=== PATIENT | female | born 1975 | race Hispanic/Latino ===

== ENCOUNTER 2018-11-06 21:48 | Emergency (ER) | payer OTHER ==
[2018-11-06 22:04] LABS: APPEARANCE,URINE Clear (CLEAR); BILIRUBIN,URINE Negative (NEGATIVE); COLOR,URINE Yellow (YELLOW); GLUCOSE, URINE (UA) Negative (NEGATIVE); KETONES,URINE Negative (NEGATIVE); LEUKOCYTE ESTERASE ,URINE Trace (NEGATIVE); NITRATE,URINE Negative (NEGATIVE); OCCULT BLOOD,URINE Negative (NEGATIVE); PH,URINE 7.5 (5.0-8.0); PROTEIN,URINE Negative (NEGATIVE)
[2018-11-06 22:11] LABS: BACTERIA,URINE Rare /HPF (None Seen); RBC,URINE 0-1 /HPF (0-1); SQUAMOUS EPITHELIAL CELL,UR Rare /HPF (0-2); WBC,URINE 0-1 /HPF (0-1)
[2018-11-06 22:52] LABS: BASOPHILS % (AUTO) 1.4 % (0.0-5.0); EOSINOPHILS % (AUTO) 1.6 % (0.0-8.0); HEMATOCRIT 38.1 % (36-48); LYMPHOCYTES % (AUTO) 17.5 % (21.0-51.0); MEAN CORPUSCULAR HEMOGLOBIN 26.9 pg (27.0-33.0); MEAN CORPUSCULAR HGB CONC 33.4 g/dL (32.0-36.0); MEAN CORPUSCULAR VOLUME 80.7 fL (79-99); MONOCYTES % (AUTO) 7.5 % (3.0-13.0); PLATELET COUNT (AUTO) 319 K/uL (130-400); RED BLOOD CELL COUNT(AUTO) 4.72 MIL/uL (4.00-5.50); RED CELL DISTRIBUTION WIDTH 15.1 % (11.0-15.5); WHITE BLOOD COUNT (AUTO) 12.2 K/uL (4.8-10.8)
[2018-11-06] MEDS ORDERED: KETOROLAC TROMETHAMINE 30MG/ML ONE (22:56)
[2018-11-06 23:10] LABS: CREATININE 0.6 mg/dL (0.5-1.5); POTASSIUM 3.8 mmol/L (3.5-5.1)
[2018-11-06 23:14] LABS: ALBUMIN 3.4 g/dL (3.5-5.0); BILIRUBIN,TOTAL 0.6 mg/dL (0.2-1.0); TOTAL PROTEIN, SERUM 8.3 g/dL (6.0-8.3)
== END 2018-11-07 01:18 | disposition home or self-care (01) ==
LOC: EDH 21:48
DX: R10.31 Right lower quadrant pain (principal); Z90.49 Acquired absence of other specified parts of digestive tract; Z98.51 Tubal ligation status
CPT/HCPCS: 36415; 80053; 81001; 82150; 83690; 85025; 96374; 99283; J1885

== ENCOUNTER 2022-02-20 11:59 | Emergency (ER) | payer OTHER ==
[~2022-02-20] VITALS: Ht 152.4 cm; Wt 96.2 kg
[2022-02-20] MEDS ORDERED: IBUP-2071 PO (12:26)
[2022-02-20] MEDS ORDERED: KETOROLAC 60 MG VIAL (30MG/ML) IVP ONE (12:30)
[2022-02-20 13:11] VITALS: BP 130/75
== END 2022-02-20 13:08 | disposition home or self-care (01) ==
LOC: EDH 11:59
DX: S86.912A Strain of unspecified muscle(s) and tendon(s) at lower leg level, left leg, initial encounter (principal); E66.9 Obesity, unspecified; Z68.41 Body mass index [BMI] 40.0-44.9, adult; Z79.1 Long term (current) use of non-steroidal anti-inflammatories (NSAID); X58.XXXA Exposure to other specified factors, initial encounter; Y93.89 Activity, other specified; Y92.89 Other specified places as the place of occurrence of the external cause; Y99.8 Other external cause status
CPT/HCPCS: 29505; 73562; 96372; 99284; J1885; 96374

== ENCOUNTER 2023-02-03 04:38 | Emergency (ER) | payer OTHER ==
[~2023-02-03] VITALS: Ht 154.9 cm; Wt 97.5 kg
[~2023-02-03 04:38] MED LIST: IBUP-2071 PO
[2023-02-03] MEDS ORDERED: IPRATROPIUM/ALBUTEROL SULFATE 3 ML SOLUTION IH ONE (05:30)
[2023-02-03] MEDS ORDERED: SOLU-MEDROL 125MG VIAL IVP ONE (05:30)
[2023-02-03 05:53] LABS: CREATININE 0.9 mg/dL (0.5-1.5); POTASSIUM 4.1 mmol/L (3.5-5.1)
[2023-02-03 05:54] LABS: BASOPHILS % (AUTO) 1.2 % (0.0-5.0); EOSINOPHILS % (AUTO) 6.4 % (0.0-8.0); HEMATOCRIT 41.5 % (36-48); MEAN CORPUSCULAR HEMOGLOBIN 28.5 pg (27.0-33.0); MEAN CORPUSCULAR VOLUME 86.3 fL (79-99); MONOCYTES % (AUTO) 7.7 % (3.0-13.0); NEUTROPHILS % (AUTO) 59.1 % (40.0-77.0); PLATELET COUNT (AUTO) 295 K/uL (130-400); RED BLOOD CELL COUNT(AUTO) 4.81 MIL/uL (4.00-5.50); RED CELL DISTRIBUTION WIDTH 13.2 % (11.0-15.5); WHITE BLOOD COUNT (AUTO) 9.1 K/uL (4.8-10.8)
[2023-02-03 06:00] LABS: ALBUMIN 3.8 g/dL (3.5-5.0); TOTAL PROTEIN, SERUM 8.4 g/dL (6.0-8.3)
[2023-02-03] MEDS ORDERED: METO10TA41 PO (06:20)
[2023-02-03 06:23] LABS: B-TYPE NATRIURETIC PEPTIDE 12 pg/mL (0-100)
[2023-02-03 06:42] VITALS: BP 117/70
== END 2023-02-03 06:47 | disposition home or self-care (01) ==
LOC: EDH 04:38
DX: K21.00 Gastro-esophageal reflux disease with esophagitis, without bleeding (principal); E66.9 Obesity, unspecified; Z20.822 Contact with and (suspected) exposure to COVID-19; Z90.49 Acquired absence of other specified parts of digestive tract; Z98.890 Other specified postprocedural states
CPT/HCPCS: 99284; 96374; 71045; 87635; 84484; 80053; 83880; 85025; 87804 ×2; 36415; 94640; C9803; J2930

== ENCOUNTER 2025-08-12 23:33 | Emergency (ER) | payer BC ==
[~2025-08-12] VITALS: Ht 152.4 cm; Wt 89.8 kg
[~2025-08-12 23:33] MED LIST changes: +CEPH500B PO; -IBUP-2071 PO; +LEVO-70 PO; +METF-444 PO; +METR-172 PO; +PHEN-846 PO
--- NOTE | 2025-08-12 23:59 | ERN ---
ED Note History of Present Illness Stated Complaint: C/O CHEST PAIN Chief Complaint: Heartburn/GI Distress Time Seen by MD: 23:37 Time Seen by Midlevel: 23:37 Dictation: The patient is a 50-year-old female with a history of diabetes, diverticulitis, , cholecystectomy who presents to the emergency department with complaints of left upper chest pain onset two days ago. Patient reports pain to be constant. Reports nausea but no vomiting. Reports he has been taking Tums today for the discomfort. Allergies: Coded Allergies: No Known Drug Allergies (Verified Allergy, Unknown, 04/07/14) morphine (Unverified Adverse Reaction, Intermediate, HIVES, 10/02/24) ondansetron (Unverified Adverse Reaction, Intermediate, HIVES, 10/02/24) Home Meds Active Scripts Cephalexin Monohydrate (Keflex) 500 Mg Cap, 1 CAP PO BID for 10 Days, #20 CAP 0 Refills Prov:RAF ALEGRE MD 02/14/25 Phenazopyridine HCl (Pyridium) 100 Mg Tab, 1 TAB PO TID for urinary discomfort for 2 Days, #6 TAB 0 Refills Prov:RAF ALEGRE MD 02/14/25 Metronidazole (Metronidazole) 500 Mg Tablet, 1 TAB PO TID for 12 Days, #36 TAB 0 Refills Prov:[facility] 10/04/24 Levofloxacin (Levofloxacin) 500 Mg Tablet, 500 MG PO DAILY, #12 TAB Prov:[facility]JIT [facility] 10/04/24 Reported Medications Metformin HCl (Metformin HCl) 500 Mg Tablet, 500 MG PO BID, TAB 10/02/24 Past Medical History Past Medical History: Diabetes-Type II, Diverticulosis Additional Past Medical Hx: Obesity Surgical History: Cholecystectomy, Surgical History Other: D & C Family History: Negative Social History: Negative RN Note Reviewed/Agreed w/PFSH: Yes Review of System Dictation Constitutional: Negative for fever,chills, and weight loss Eyes: Negative for injury, pain,redness, and discharge ENT: Negative for injury,pain or swelling Cardiovascular: Negative for palpitations, and edema positive for chest pain Respiratory: Negative for shortness of breath, cough, and wheezing, Abdomen/GI: Negative for abdominal pain, nausea, vomiting, diarrhea, and constipation Back: Negative for injury and pain : Negative for injury, bleeding and discharge MS/Extremity: Negative for injury and deformity Skin: Negative for rash, and discoloration Neuro: Negative for headache, weakness, numbness, tingling, and seizure Psych: Negative for suicide ideation, homicidal ideation, and hallucinations Initial Vital Sign VS Vital Signs Date Time Temp Pulse Resp B/P (MAP) Pulse Ox O2 Delivery O2 Flow Rate FiO2 08/12/25 23:35 98.6 67 20 97 Room Air 08/13/25 00:14 104/64 0 21 Physical Exam Dictation Vital Signs reviewed General Appearance: Alert, oriented x 3, no acute distress, well developed, nourished. Head and Face: non-traumatic. Eyes: PERRL, pink conjunctivas, eyelid no trauma, anterior chamber with arcus senilis. Ears: Pinnas intact and no signs of trauma or erythema ear canals clear and no discharge TM no erythema Nose: No discharge, no bleeding. Oropharynx: Mouth normal, tongue pink. pharynx clear,no erythema, tonsils no exudates, no abscesses noted, mucous membrane moist Neck: Supple, non-tender, no thyromegaly, no masses, no JVD, no bruits Breast:Deferred Chest:+ tenderness, no crepitus, no paradoxical movement, no retractions Lungs:Clear, well-ventilated, symmetric, no rales, no wheezing, no rhonchi, no stridor, good breath sounds bilaterally Heart: Regular rate, regular rhythm, no murmur, no gallops Vascular: no peripheral edema, Abdomen: Soft, positive bowel sounds, nondistended, no guarding, nontender, no rebound, no masses no hepatomegaly, no splenomegaly, no Dobbins's sign, no hernias. Rectal: Deferred Genital: Deferred Neurological: Normal speech, motor function intact, sensory function intact Musculoskeletal: Neck nontender, full range of motion, back nontender, full range of motion, Extremities: nontender, full range of motion Skin: Color pink, dry, no turgor, no rash, no lacerations, no abrasions, no contusions. Lymphatic: Deferred Results (Laboratory/Radiology) Laboratory/Radiology Laboratory Tests Test 08/12/25 23:53 08/12/25 23:55 08/13/25 01:06 White Blood Count 9.7 K/uL (4.8-10.8) Red Blood Count 4.95 MIL/uL (4.00-5.50) Hemoglobin 14.1 g/dL (12.0-16.0) Hematocrit 41.5 % (36-48) Mean Corpuscular Volume 83.8 fL (79-99) Mean Corpuscular Hemoglobin 28.5 pg (27.0-33.0) Mean Corpuscular Hemoglobin Concent 34.0 g/dL (32.0-36.0) Red Cell Distribution Width 12.8 % (11.0-15.5) Platelet Count 319 K/uL (130-400) Mean Platelet Volume 9.8 fL (7.5-10.5) Immature Granulocyte % (Auto) 0.5 % (0-1) Neutrophils (%) (Auto) 48.2 % (40.0-77.0) Lymphocytes (%) (Auto) 40.6 % (21.0-51.0) Monocytes (%) (Auto) 8.2 % (3.0-13.0) Eosinophils (%) (Auto) 1.7 % (0.0-8.0) Basophils (%) (Auto) 0.8 % (0.0-5.0) Neutrophils # (Auto) 4.7 K/uL (1.8-7.7) Lymphocytes # (Auto) 4.0 K/uL (1.0-4.8) Monocytes # (Auto) 0.8 K/uL (0.1-1.0) Eosinophils # (Auto) 0.17 K/uL (0.00-0.70) Basophils # (Auto) 0.08 K/uL (0.00-0.20) Absolute Immature Granulocyte (auto 0.05 K/uL (0-1) Nucleated Red Blood Cells 0.0 % (0.0-0.19) Sodium Level 139 mmol/L (136-145) Potassium Level 3.4 mmol/L (3.5-5.1) L Chloride Level 102 mmol/L (101-111) Carbon Dioxide Level 25 mmol/L (21-32) Blood Urea Nitrogen 13 mg/dL (7-18) Creatinine 0.7 mg/dL (0.5-1.0) Glomerular Filtration Rate Calc 105 mL/min (>90) Random Glucose 93 mg/dL (70-105) Total Calcium 9.1 mg/dL (8.5-10.1) Magnesium Level 2.20 mg/dL (1.80-2.40) Total Creatine Kinase 90 U/L (21-232) Troponin I High Sensitivity < 4 ng/L (4-50) L < 4 ng/L (4-50) L Lipase 36 U/L (16-77) Urine Color LIGHT-YELLOW (YELLOW) Urine Appearance CLEAR (CLEAR) Urine pH 8.0 (5.0-8.0) Urine Specific [place] 1.020 (1.001-1.031) Urine Protein NEGATIVE mg/dL (NEGATIVE) Urine Glucose (UA) NEGATIVE mg/dL (NEGATIVE) Urine Ketones NEGATIVE mg/dL (NEGATIVE) Urine Occult Blood NEGATIVE (NEGATIVE) Urine Nitrate NEGATIVE (NEGATIVE) Urine Bilirubin NEGATIVE mg/dL (NEGATIVE) Urine Urobilinogen 3 mg/dL (0.2-1.0) H Urine Leukocyte Esterase NEGATIVE [place]/uL Urine RBC 2-5 /HPF (0-1) H Urine WBC 2-5 /HPF (0-1) H Urine Squamous Epithelial Cells RARE /HPF (0-2) Urine Bacteria None /HPF (None Seen) REASON: cp ORDERING PHYSICIAN: RAKEL DUBON PROCEDURE: CXR1VW - CHEST 1VW EXAM: CR Chest, 1 view CLINICAL HISTORY: Chest pain. COMPARISON: Chest radiograph dated 07/31/2023. FINDINGS: The lungs show no infiltrates or other acute findings. No pleural effusion or pneumothorax. The cardiomediastinal silhouette is within normal limits. No acute osseous abnormality. IMPRESSION: No acute cardiopulmonary process is evident. Compared to the prior study, there is no significant interval change. /[place] Labs Reviewed?: Yes EKG: (+) rhythm (Sinus rhythm) EKG Comment: Date:08/12/2025 Time:234 Ventricular rate:65 TN interval:158 QRS duration:106 QT/QTc:429/446 EKG interpretation: Sinus rhythm Reviewed by ED Attending no STEMI ED Course ED Course Orders Procedure Category Date Status Time Cbc With Differential LAB 08/12/25 Complete 23:39 Chest 1vw RAD 08/12/25 Resulted 23:39 12 Lead Ekg Tracing- EKG 08/12/25 Logged Technical 23:39 Magnesium LAB 08/12/25 Complete 23:39 Creatine Kinase, Total LAB 08/12/25 Complete 23:39 Troponin I High LAB 08/12/25 Complete Sensitivity 23:39 Aspirin 325mg Tab PHA 08/13/25 Complete (Aspirin 325mg Tab) 00:00 Urinalysis Profile LAB 08/12/25 Complete 23:39 Basic Metabolic Panel LAB 08/12/25 Complete 23:39 Lipase LAB 08/12/25 Complete 23:39 Pantoprazole 40mg Inj PHA 08/13/25 Complete (Protonix 40mg Inj 00:00 Troponin I High LAB 08/13/25 Complete Sensitivity 00:51 Potassium Bicarb/Cit PHA 08/13/25 Complete Ac 25meq (K-Lyte Ta 01:00 Current Medications Medications (Trade) Dose Ordered Sig/Ronit Route PRN Reason Start Time Stop Time Status Last Admin Dose Admin Aspirin (Aspirin 325mg Tab) 325 mg ONCE ONCE PO 08/13/25 00:00 08/13/25 00:01 DC 08/13/25 00:21 Pantoprazole Sodium (PROTonix 40MG INJ) 40 mg ONCE ONCE IVP 08/13/25 00:00 08/13/25 00:01 DC 08/13/25 00:21 Potassium Bicarbonate (K-Lyte Tablet Eff 25 Meq Tablet.eff) 25 meq ONCE ONCE PO 08/13/25 01:00 08/13/25 01:01 DC 08/13/25 01:03 Vital Signs Date Time Temp Pulse Resp B/P (MAP) Pulse Ox O2 Delivery O2 Flow Rate FiO2 08/13/25 01:14 98.2 68 19 112/72 97 Room Air* 0 21 08/13/25 00:14 98.2 61 18 104/64 97 Room Air* 0 21 08/12/25 23:35 98.6 67 20 97 Room Air HEART Score Response (Comments) Value History: Low suspicion (0) 0 EKG: Normal 0 Age: 45-65yrs (+1) 1 Risk Factors: 1-2 risk factors (+1) 1 Initial Troponin: Normal limit (0) 0 Total 2 Medical Decision Making MDM The patient is a 50-year-old female with a history of diabetes, diverticulitis, , cholecystectomy who presents to the emergency department with compl aints of left upper chest pain onset two days ago. Patient reports pain to be constant. Reports nausea but no vomiting. Reports he has been taking Tums today for the discomfort. CBC showed no leukocytosis, no anemia, chemistry showed mild hypokalemia, n egative troponin x2. chest x-ray showed no acute pathology. Patient with tenderness to palpation. Low cardiac score. On physical exam patient is in no acute distress, nontoxic appearance. We will be discharged to follow up with PCP. Differential diagnosis: ACS, pneumonia, pneumothorax, gastritis, pancreatitis Need for hospitalization: Patient does not meet criteria for hospitalization. There are no social concerns with this patient. DX & DISP Disposition: Discharge Departure Impression: Primary Impression: Chest wall pain Condition: Stable Additional Instructions: Your labs and x-ray were unremarkable. Please follow up with the your primary doctor in 1-2 days. If anything worsens please return to ER. FOLLOW-UP WITH PRIMARY CARE PROVIDER IN 1 TO 2 DAYS. TAKE MEDICATIONS DIRECTED HERE IN THE EMERGENCY ROOM. OKAY TO CONTINUE HOME MEDICATIONS UNLESS OTHERWISE DISCUSSED DURING YOUR VISIT IN THE EMERGENCY ROOM TODAY. RETURN TO YOUR NEAREST EMERGENCY ROOM IF SYMPTOMS WORSEN OR IF THERE IS NO IMPROVEMENT. CALL 911 IF YOU NEED IMMEDIATE ASSISTANCE. TAKE TYLENOL [id number] NEEDED AND IF NO CONTRAINDICATIONS ARE PRESENT. INCREASE ORAL HYDRATION. A WOUND CULTURE OR URINE CULTURE WAS ORDERED HERE IN THE EMERGENCY ROOM DEPARTMENT PLEASE FOLLOW-UP WITH PRIMARY CARE PROVIDER AND ADVISE THEM TO GET REPEAT PORTS FROM OUR FACILITY. IF YOU HAD ANY BRENDAN WRAP/SPLINTS THAT WERE APPLIED HERE, PLEASE DO NOT REMOVE THEM UNTIL YOU SEE YOUR PRIMARY CARE OR SPECIALTY. Referrals: KORTNEY RODRIGUEZ MD (PCP) Time of Disposition: 02:00 I have reviewed the case, and I agree with, Diagnosis and Plan RAKEL DUBON [facility] Aug 12, 2025 23:59
[2025-08-13] MEDS: ASPIRIN 325MG TAB PO ONE (00:21)
[2025-08-13 00:32] LABS: APPEARANCE,URINE CLEAR (CLEAR); GLUCOSE, URINE (UA) NEGATIVE (NEGATIVE); LEUKOCYTE ESTERASE ,URINE NEGATIVE Leu/uL (NEGATIVE); NITRATE,URINE NEGATIVE (NEGATIVE); OCCULT BLOOD,URINE NEGATIVE (NEGATIVE)
[2025-08-13 00:34] LABS: IMMATURE GRANULOCYTE ABSOLUTE 0.05 K/uL (0-1); NUCLEATED RED BLOOD CELLS 0.0 % (0.0-0.19); PLATELET COUNT (AUTO) 319 K/uL (130-400); RED BLOOD CELL COUNT(AUTO) 4.95 MIL/uL (4.00-5.50); RED CELL DISTRIBUTION WIDTH 12.8 % (11.0-15.5); WHITE BLOOD COUNT (AUTO) 9.7 K/uL (4.8-10.8)
[2025-08-13 00:39] LABS: CREATININE 0.7 mg/dL (0.5-1.0); GLOMERULAR FILTR. RATE CALC 105.0 mL/min (>90); GLUCOSE,RANDOM 93.0 mg/dL (70-105); SODIUM SERUM 139.0 mmol/L (136-145); UREA NITROGEN, BLOOD 13.0 mg/dL (7-18)
[2025-08-13 00:44] LABS: CREATINE KINASE, TOTAL 90.0 U/L (21-232)
[2025-08-13 00:46] LABS: ADD UA MICROSCOPIC YES
[2025-08-13 00:49] LABS: SQUAMOUS EPITHELIAL CELL,UR RARE /HPF (0-2)
--- NOTE | 2025-08-13 01:28 | HMCIMG ---
EXAM: CR Chest, 1 view CLINICAL HISTORY: Chest pain. COMPARISON: Chest radiograph dated 07/31/2023. FINDINGS: The lungs show no infiltrates or other acute findings. No pleural effusion or pneumothorax. The cardiomediastinal silhouette is within normal limits. No acute osseous abnormality. IMPRESSION: No acute cardiopulmonary process is evident. Compared to the prior study, there is no significant interval change. /[place]
[2025-08-13 02:12] VITALS: BP 99/64; PULSE 64; RESP 18; TEMP 98.3; O2SAT 98
--- NOTE | 2025-08-13 06:53 | EKG ---
[facility] Test Date: 2025-08-12 Test Time: 23:41:06 Pat Name: JESSEE RAZO Department: ED Room: Gender: F Manager Laundry: [id number] : 1975 Requested By: RAKEL DUBON Order Number: [id number] Reading MD: Meir Richter Measurements Intervals [place] Rate: 65 P: 30 RI: 158 QRS: -29 QRSD: 106 T: 6 QT: 429 QTc: 446 Interpretive Statements Sinus rhythm Compared to ECG 07/31/2023 10:59:20 No significant changes Electronically Signed On 08-14-2025 10:54:16 CDT by Meir Richter Please click the below link to view image of tracing.
== END 2025-08-13 02:22 | disposition home or self-care (01) ==
LOC: EDH 23:33
DX: R07.89 Other chest pain (principal); E11.9 Type 2 diabetes mellitus without complications; E66.9 Obesity, unspecified; Z79.84 Long term (current) use of oral hypoglycemic drugs; Z88.5 Allergy status to narcotic agent; Z90.49 Acquired absence of other specified parts of digestive tract
CPT/HCPCS: 99284; 71045; 82550; 83735; 84484 ×2; 80048; 83690; 85025; 81001; 36415; 93005; 96374; J2470